=== PATIENT | female | born 1940 | race Two or more races ===

== ENCOUNTER 2023-11-04 09:17 | Inpatient (IN) | payer OTHER, BC ==
[~2023-11-04] VITALS: Ht 162.6 cm; Wt 49.9 kg
[2023-11-04] MEDS ORDERED: LEVOTHYROXINE75 MC1 PO (10:07)
[2023-11-04] MEDS ORDERED: VITAMIN B-COMP1 EAC2 PO (10:08)
[2023-11-04] MEDS ORDERED: VITAMIN D3125 MC2 PO (10:08)
[2023-11-04] MEDS ORDERED: [UNRECOGNIZED DRUG - OTHER] PO (10:10)
[2023-11-04] MEDS ORDERED: ADULT LOW DOSE81 M1 PO (10:12)
[2023-11-04] MEDS ORDERED: SIMVASTATIN5 MG PO (10:12)
[2023-11-04] MEDS ORDERED: ZETIA10 MG PO (10:13)
[2023-11-04] MEDS ORDERED: NAMENDA XR28 MG PO (10:14)
[2023-11-04] MEDS ORDERED: ARICEPT10 MG PO (10:14)
[2023-11-04] MEDS ORDERED: ESCITALOPRA5 MG/5 ML PO (10:14)
--- NOTE | 2023-11-04 10:32 | NUR ---
PACIENTE ALERTA Y ORIENTADA X3 ACOMPANADA DE CUIDADORA REFIERE QUE DESDE EL SABADO PASADO LLEVA CON ELIZABETH TOS RECURRENTE CON ESPUTO SIN PODER EXPECTORAL, PACIENTE VERBALIZA TENER DOLOR EN EL LADO DERECHO DEL PECHO CADA VEZ QUE TOSE Y MAREARSE CUANDO SE FATIGA. CUIDADORA VERBALIZA QUE PRESENTO FIEBRE EL LUNES. SE LE REALIZA UN EKG Y SE PRESENTA A DR. DE ANDA Y SE UBICA EN ASMA UNIT.
[2023-11-04] MEDS ORDERED: GUAIFENESIN/DEXTROMETHORPHAN 100 MG/5 ML ML PO ONE (10:45)
[2023-11-04] MEDS ORDERED: METHYLPREDNISOLONE SOD SUCC 125 MG VIAL IV ONE (10:45)
[2023-11-04] MEDS ORDERED: KETOROLAC TROMETHAMINE 30 MG VIAL IV ONE (10:45)
[2023-11-04] MEDS ORDERED: LEVALBUTEROL HCL 1.25 MG/3 ML SOLUTION IH SCH ×2 (10:45→13:00)
--- NOTE | 2023-11-04 11:07 | NUR ---
SE ORIENTA PTE SOBRE TX A SEGUIR,EL CUAL REFIERE ENTENDER. SE COLECTAN MUESTRAS UTILIZANDO MEDIDAS ASEPTICAS.SE ADM.MEDICAMENTOS JUSTIN ORDEN MEDICA.
[2023-11-04 11:23] LABS: HEMATOCRIT 47.7 % (36.0-45.00); HEMOGLOBIN 16.4 g/dL (12.0-15.00); MEAN CELL VOLUME 93.1 fL (80.00-100.00); MEAN CORPUSCULAR HEMOGLOBIN 31.9 pg (27.00-32.0); MEAN CORPUSCULAR HGB CONC 34.3 g/dl (32.0-36.0); RED BLOOD COUNT 5.13 M/uL (4.00-6.00); RED CELL DISTRIBUTION WIDTH 13.8 % (11.5-14.5)
[2023-11-04 11:54] LABS: ALBUMIN 3.7 gm/dL (3.4-5.0); BILIRUBIN TOTAL 0.43 mg/dL (0.3-1.2); CALCIUM 9.9 mg/dL (8.5-10.1); CREATININE SERUM 1.04 mg/dL (0.55-1.02); GFR 50.61; GLOBULINA 3.8 G/DL (2.4-3.5); POTASSIUM 3.5 mEq/L (3.5-5.1); TOTAL PROTEIN 7.5 gm/dL (6.4-8.2)
[2023-11-04 11:55] LABS: ABG PH 7.415 (7.35-7.45); ABG PO2 64.7 mmHg (80-100); ABG pCO2 40.2 mmHg (35-45); SaO2 92.7 %
[2023-11-04 11:56] LABS: BASE EXCESS 21 mmol/l; BICARBONATE 0.7 mmol/l (23-25); Tco2 25.2 mmol/l; allen test SATISFACTORY; o2 26.5 %; puncture site RADIAL RIGHT
[2023-11-04 12:11] LABS: PLATELET COUNT 54 K/uL (150-450)
--- NOTE | 2023-11-04 15:35 | NUR ---
PTE ALERTA Y ORIENTADA X 3 ESFERAS EN ALIX CON BARANDAS ELEVADAS,SIN DIFICULTAD RESP AL MOMENTO.AREA DE VENOPUNCION PATENTE Y DOMINIC DE EDEMA.PENDIENTE A EVALUACION DE DRA MCMULLEN.
[2023-11-04] MEDS ORDERED: 0.9 % SODIUM CHLORIDE 1,000 ML IV SCH (19:00)
[2023-11-04] MEDS ORDERED: AZITHROMYCIN 500 MG in 0.9 % SODIUM CHLORIDE 250 ML IV SCH (19:01)
[2023-11-04] MEDS ORDERED: CEFTRIAXONE SODIUM 2,000 MG in 0.9 % SODIUM CHLORIDE 100 ML IV SCH (19:02)
[2023-11-04] MEDS ORDERED: ONDANSETRON HCL 4 MG in 0.9 % SODIUM CHLORIDE 50 ML IV PRN (19:15)
[2023-11-04] MEDS ORDERED: ACETAMINOPHEN 500 MG GEL..CAP PO PRN (19:15)
[2023-11-04 20:01] LABS: INR 1.02; PARTIAL THROMBOPLASTIN TIME 29.4 SECONDS (22.0-34.0); PROTHROMBIN TIME 10.7 SECONDS (9.0-11.5)
[2023-11-04 20:50] LABS: PH,URINE 5.5 (5.0-8.0); URINE APPEARANCE Clear; URINE BILIRRUBIN Negative (NEGATIVE); URINE BLOOD Moderate; URINE COLOR Yellow; URINE LEUKOCYTE Negative; URINE NITRATE Negative; URINE PROTEIN Trace (NEGATIVE)
[2023-11-04 20:54] LABS: URINE BACTERIA 66.7 uL (0.0-1933); URINE EPITHELIAL CELLS 4.1 uL (0.0-38.8); URINE RBC 11.2 uL (0.0-20.8); URINE WBC 2.9 uL (0.0-23.2)
[2023-11-04] MEDS ORDERED: IPRATROPIUM BROMIDE 0.5 MG/2.5 ML AMPUL.NEB IH SCH (21:00)
[2023-11-04] MEDS ORDERED: BUDESONIDE 0.5 MG/2 ML AMPUL.NEB IH SCH (21:00)
[2023-11-04 21:11] LABS: URINE GLUCOSE 250 MG/DL (NEGATIVE)
[2023-11-05] MEDS ORDERED: GUAIFENESIN/DEXTROMETHORPHAN 100 MG/5 ML ML PO SCH
[2023-11-05] MEDS ORDERED: LEVOTHYROXINE SODIUM 75 MCG TABLET PO SCH (06:00)
[2023-11-05] MEDS ORDERED: ENALAPRILAT DIHYDRATE 1.25 MG/ML VIAL IV PRN (08:45)
[2023-11-05] MEDS ORDERED: PANTOPRAZOLE SODIUM 40 MG/VIAL VIAL IV SCH (09:00)
[2023-11-05] MEDS ORDERED: MEMANTINE HCL 10 MG TABLET PO SCH (09:00)
[2023-11-05] MEDS ORDERED: SIMVASTATIN 20 MG TABLET PO SCH (17:00)
[2023-11-05] MEDS ORDERED: DONEPEZIL HCL 10 MG TABLET PO SCH (17:00)
[2023-11-05] MEDS ORDERED: BENZONATATE 100 MG CAPSULE PO SCH (20:46)
[2023-11-05] MEDS ORDERED: METHYLPREDNISOLONE SOD SUCC 40 MG VIAL IV SCH (21:00)
[2023-11-06 06:26] LABS: HEMATOCRIT 43.8 % (36.0-45.00); HEMOGLOBIN 14.8 g/dL (12.0-15.00); MEAN CELL VOLUME 93.9 fL (80.00-100.00); MEAN CORPUSCULAR HEMOGLOBIN 31.7 pg (27.00-32.0); MEAN CORPUSCULAR HGB CONC 33.8 g/dl (32.0-36.0); RED BLOOD COUNT 4.66 M/uL (4.00-6.00); RED CELL DISTRIBUTION WIDTH 13.7 % (11.5-14.5)
[2023-11-06 06:49] LABS: PLATELET COUNT 128 K/uL (150-450)
[2023-11-06 07:07] LABS: ALBUMIN 3.6 gm/dL (3.4-5.0); BILIRUBIN TOTAL 0.32 mg/dL (0.3-1.2); CALCIUM 8.6 mg/dL (8.5-10.1); CREATININE SERUM 1.04 mg/dL (0.55-1.02); GFR 50.61; GLOBULINA 3.1 G/DL (2.4-3.5); MAGNESIUM 2.1 mg/dL (1.8-2.4); POTASSIUM 3.78 mEq/L (3.5-5.1); TOTAL PROTEIN 6.7 gm/dL (6.4-8.2)
[2023-11-06 07:08] LABS: C-REACTIVE PROTEIN 0.66 MG/DL (0.00-0.29)
[2023-11-06 08:32] LABS: MANUAL PLATELET COUNT 210
[2023-11-07] MEDS ORDERED: FOLIC ACID 1 MG TABLET PO SCH (12:50)
[2023-11-07] MEDS ORDERED: PATIENTS OWN MEDICATION (MEDICAMENTO EN PISO) PO SCH (21:00)
[2023-11-08] MEDS ORDERED: PATIENTS OWN MEDICATION (MEDICAMENTO EN PISO) PO SCH (09:00)
[2023-11-08] MEDS ORDERED: METHYLPREDNISOLONE SOD SUCC 40 MG VIAL IV SCH (09:00)
== END 2023-11-08 12:30 | disposition home or self-care (01) | DRG 191 ==
LOC: ER 09:18 → MEDI 19:35 → MEDJ 19:35 → MEDI 11-05 08:21
PROVIDERS: General Practice; Internal Medicine Infectious Disease; ADMIT Internal Medicine; ATTEND Internal Medicine
PROC: BW21ZZZ Computerized Tomography (CT Scan) of Abdomen and Pelvis (ICD-10-PCS; principal; 2023-11-04)
DX: J44.1 Chronic obstructive pulmonary disease with (acute) exacerbation (principal); J47.1 Bronchiectasis with (acute) exacerbation; N17.9 Acute kidney failure, unspecified; D69.6 Thrombocytopenia, unspecified; G30.9 Alzheimer's disease, unspecified; F02.80 Dementia in other diseases classified elsewhere, unspecified severity, without behavioral disturbance, psychotic disturbance, mood disturbance, and anxiety; E03.9 Hypothyroidism, unspecified; E78.5 Hyperlipidemia, unspecified